=== PATIENT | female | born 1965 | race Two or more races ===

== ENCOUNTER → 2018-01-03 | Outpatient (CLI) | payer OTHER ==
[~2018-01-03] MED LIST: LEVSIN/SL0.125 MG SL
== END | disposition home or self-care (01) ==
LOC: MRI 14:15
DX: M54.5 Low back pain (principal); M51.87 Other intervertebral disc disorders, lumbosacral region
CPT/HCPCS: 72148

== ENCOUNTER 2023-04-12 15:31 | Outpatient (CLI) | payer OTHER | END 2023-04-12 16:00 | disposition home or self-care (01) | LOC: RAD 15:31 | PROVIDERS: ATTEND Physical Medicine & Rehabilitation | DX: M54.2 Cervicalgia (principal) ==

== ENCOUNTER 2023-04-15 09:12 | Outpatient (CLI) | payer OTHER | END 2023-04-15 09:33 | disposition home or self-care (01) | LOC: SONOGRAMA 09:12 | DX: R10.11 Right upper quadrant pain (principal) ==

== ENCOUNTER 2023-06-25 14:07 | Outpatient (CLI) | payer OTHER | END 2023-06-25 14:22 | disposition home or self-care (01) | LOC: TOM 14:07 | PROVIDERS: ATTEND Specialist | DX: K37 Unspecified appendicitis (principal); R20.0 Anesthesia of skin ==

== ENCOUNTER 2024-08-12 10:09 | Outpatient (CLI) | payer OTHER | END 2024-08-12 10:22 | disposition home or self-care (01) | LOC: TOM 10:09 | PROVIDERS: ATTEND Internal Medicine Pulmonary Disease | DX: R91.8 Other nonspecific abnormal finding of lung field (principal); R05.3 Chronic cough ==